=== PATIENT | female | born 1980 | race African-American/Black ===

== ENCOUNTER 2018-08-02 21:06 | Emergency (ER) | payer OTHER ==
[~2018-08-02] VITALS: Ht 172.7 cm; Wt 63.5 kg
--- NOTE | 2018-08-02 21:17 | NUR ---
MD OWENS AT BEDSIDE FOR MSE
[2018-08-02] MEDS ORDERED: PANTOPRAZOLE SODIUM 40 MG TABLET.DR PO ONE ×2 (21:28→21:30)
[2018-08-02 21:47] LABS: BASOPHILS % (AUTO) 0.5 % (0.0-2.0); EOSINOPHILS # (AUTO) 0.3 K/uL (0.0-0.7); EOSINOPHILS % (AUTO) 6.2 % (0.0-7.0); HEMATOCRIT 41.2 % (31.2-41.9); LYMPHOCYTES # (AUTO) 1.8 K/uL (20.0-40.0); LYMPHOCYTES % (AUTO) 33.5 % (20.5-51.5); MEAN CORPUSCULAR HEMOGLOBIN 30.2 uug (24.7-32.8); MEAN CORPUSCULAR HGB CONC 34 g/dL (32.3-35.6); MEAN CORPUSCULAR VOLUME 88.7 fL (75.5-95.3); MONOCYTES # (AUTO) 0.4 K/uL (2.0-10.0); MONOCYTES % (AUTO) 7.6 % (0.0-11.0); NEUTROPHILS # (AUTO) 2.7 K/uL (1.8-8.9); NEUTROPHILS % (AUTO) 52.2 % (38.5-71.5); PLATELET COUNT (AUTO) 208 K/uL (179-408); RED BLOOD CELL COUNT(AUTO) 4.64 MIL/uL (3.63-4.92); WHITE BLOOD COUNT (AUTO) 5.2 K/uL (3.8-11.8)
[2018-08-02 22:11] LABS: ALANINE AMINOTRANSFERASE 12 U/L (14-59); ALKALINE PHOSPHATASE 56 U/L (50-136); ASPARTATE AMINOTRANSFERASE 6 U/L (15-37); BILIRUBIN,DIRECT 0.1 mg/dL (0.0-0.2); BILIRUBIN,TOTAL 0.4 mg/dL (0.2-1.0); CARBON DIOXIDE 28 mmol/L (21-32); CREATININE 0.6 mg/dL (0.6-1.3); GLUCOSE 118 mg/dL (74-106); LIPASE 135 U/L (73-393); TOTAL PROTEIN, SERUM 7.6 g/dL (6.4-8.2); UREA NITROGEN, BLOOD 7 mg/dL (7-18)
[2018-08-02 22:15] LABS: CHLORIDE 105 mmol/L (98-107); POTASSIUM 4.9 mmol/L (3.5-5.1)
[2018-08-02] MEDS ORDERED: MAG HYDROX/AL HYDROX/SIMETH 30 ML LIQUID UDC ONE (22:25)
[2018-08-02] MEDS ORDERED: LIDOCAINE VISCUS 2% 15 ML UDC ONE (22:25)
[2018-08-02] MEDS ORDERED: LIDOCAINE VISCUS 2% 15 ML UDC MM ONE (22:30)
[2018-08-02] MEDS ORDERED: MAG HYDROX/AL HYDROX/SIMETH 30 ML LIQUID UDC PO ONE (22:30)
--- NOTE | 2018-08-02 22:57 | NUR ---
PT IN BED. PT IS CALM AND COOPERATIVE. PT REPORTS BEING CHEST PAIN FREE AT THIS TIME; HOWEVER, STILL HAVING A "HEAVY FEELING" WITH BREATHING. LUNG SOUNDS CLEAR BILATERALLY WITH BREATH SOUNDS EVEN AND UNLABORED. NO SIGNS OF DISTRESS WITNESSED AT THIS TIME. MADE AWARE. Addendum: 08/02/18 at 2301 by JCALLOWAY O2 SAT--100% ON RA
--- NOTE | 2018-08-02 23:51 | NUR ---
PT REPORTS BEING FREE OF CHEST PAIN AND NO LONGER HAVING THE "HEAVY FEELING" IN CHEST WITH BREATHING, AT THIS TIME. MADE AWARE.
--- NOTE | 2018-08-03 01:30 | NUR ---
Patient discharged to home in stable conditon. Written and verbal after care instructions given. Patient verbalizes understanding of instructions. Patient able to ambulate unassisted with a steady gait. Patient left with all personal belongings.
[2018-08-03 01:34] VITALS: BP 121/67
== END 2018-08-03 01:30 | disposition home or self-care (01) ==
LOC: ER 21:07
DX: K21.9 Gastro-esophageal reflux disease without esophagitis (principal); R07.89 Other chest pain
CPT/HCPCS: 36415 ×2; 71045; 80048; 80076; 83690; 84484 ×2; 84702; 85025; 85379; 85730; 93005 ×2; 99285; A4663; 70030-TC